=== PATIENT | male | born 1990 | race American Indian/Alaskan Native ===

== ENCOUNTER → 2016-11-24 | Outpatient (CLI) | payer BC, OTHER ==
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
== END ==
LOC: MW.US 12:56
PROVIDERS: ATTEND Nurse Practitioner Family
DX: L72.9 Follicular cyst of the skin and subcutaneous tissue, unspecified (principal)
CPT/HCPCS: 76881-26-LT; 76881-LT

== ENCOUNTER 2017-06-12 01:27 | Emergency (ER) | payer BC, OTHER ==
[2017-06-12 01:38] VITALS: BP 127/89
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
== END 2017-06-12 01:52 ==
LOC: MW.ED 01:27
DX: Z02.89 Encounter for other administrative examinations (principal); F17.210 Nicotine dependence, cigarettes, uncomplicated
CPT/HCPCS: 99282; 99283